=== PATIENT | female | born 1970 | race Caucasian/White ===

== ENCOUNTER 2017-05-07 10:26 | Day surgery (SDC) | payer MEDICARE, MEDICAID ==
[~2017-05-07 10:26] MED LIST: ANEXSIA 5/325 M1 TAB PO; DAILY MULTIPLE1 EAC2 PO; DEPO-PROVER150 MG/ML IM; HYDROCODON-ACE1 EA16 PO; TAMOXIFEN CITRA20 M1 PO
[2017-05-07 11:00] LABS: BASO % 0.5 % (0-2); EOSINOPHIL ABSOLUTE COUNT 0.1 tho/cmm (0.0-0.7); HCT-HEMATOCRIT 41.3 % (34.0-49.0); HGB-HEMOGLOBIN 13.9 gm/dl (12.0-15.5); IMMATURE GRANULOCYTES ABSOLUTE 0.01 tho/cmm (0-0.03); IMMATURE GRANULOCYTES PERCENT 0.2 % (0-0.3); LYMPH % 44.3 % (20-45); LYMPH ABSOLUTE COUNT 2.7 tho/cmm (0.8-4.5); MCHC MEAN CORPUSCULAR HGB CONC 33.7 % (32.0-36.0); MCV (MEAN CELL VOLUME) 89.2 fl (82.0-96.0); MEAN PLATELET VOLUME 9.9 cmc (9.4-12.4); MONO % 7.6 % (0-12); MONOCYTE ABSOLUTE COUNT 0.5 tho/cmm (0.0-1.2); NEUTROPHIL ABSOLUTE COUNT 2.8 tho/cmm (1.6-8.0); NEUTROPHIL-AUTOMATED 2.8 tho/cmm (1.6-8.0); NEUTROPHILS % 46.4 % (40-80); PLATELET COUNT 265 tho/cmm (150-450); RED BLOOD COUNT 4.63 mil/cmm (4.00-5.20); RED CELL DISTRIBUTION WIDTH 12.1 % (12.4-16.4); WHITE BLOOD COUNT 6.1 tho/cmm (4.0-10.0)
[2017-05-07 11:05] LABS: PROTHROMBIN TIME 11.8 SECONDS (9.0-13.6)
== END 2017-05-07 15:30 ==
LOC: CTSCAN 10:26 → SHSB 10:28 → PACU 13:13 → SHSB 14:05
PROVIDERS: Radiology Diagnostic Radiology
PROC: 0PB43ZX Excision of Thoracic Vertebra, Percutaneous Approach, Diagnostic (ICD-10-PCS; principal; 2017-05-07)
DX: C79.51 Secondary malignant neoplasm of bone (principal); F79 Unspecified intellectual disabilities; H26.9 Unspecified cataract; K76.0 Fatty (change of) liver, not elsewhere classified; Z79.810 Long term (current) use of selective estrogen receptor modulators (SERMs); Z79.899 Other long term (current) drug therapy; Z87.440 Personal history of urinary (tract) infections; Z90.13 Acquired absence of bilateral breasts and nipples; Z98.890 Other specified postprocedural states
CPT/HCPCS: J3010